=== PATIENT | female | born 1965 | race African-American/Black ===

== ENCOUNTER 2017-12-30 18:43 | Inpatient (IN) | payer MEDICARE, MEDICAID ==
[~2017-12-30] VITALS: Ht 165.1 cm; Wt 127.9 kg
[~2017-12-30 18:43] MED LIST: CYCL-36 PO; GLUC10TA3 PO; HYDR10SO PO; IBUP800T23 PO; JANU100T PO; LANSO15 PO; METF-324 PO; METO10TA PO; OSEL75 PO; ZOFR4TAB3 SL
[2017-12-30 18:54] VITALS: BP 135/62; PULSE 116; RESP 19; TEMP 103; O2SAT 95
[2017-12-30] MEDS ORDERED: AZTREONAM INJ 2,000 MG in SODIUM CHLORIDE 0.9% INJ 100 ML IV ONE (19:00)
[2017-12-30] MEDS ORDERED: SODIUM CHLOR 0.9% 1000 ML INJ 1,000 ML IV ONE ×2 (19:00)
[2017-12-30] MEDS ORDERED: VANCOMYCIN INJ 1,000 MG in SODIUM CHLOR 0.9% 250 ML INJ 250 ML IV ONE (19:00)
[2017-12-30] MEDS ORDERED: ACETAMINOPHEN 325 MG TAB PO ONE (19:00)
--- NOTE | 2017-12-30 19:04 | PD ---
HPI Chief Complaint: Altered Mental Status Time Seen by Provider: 18:54 Travel History International Travel<30 days: No Contact w/Intl Traveler<30days: No Traveled to known affect area: No History of Present Illness HPI Patient is a 52-year-old female history of diabetes presents emergency department for evaluation of generalized achiness not feeling well since about 1400 earlier today. She also states that her right arm feels significantly heavier than the left. Fairly somnolent on arrival she is moaning and ears uncomfortable. She denies any cough congestion vomiting diarrhea constipation but does endorse some mild nausea. Denies any vaginal bleeding or vaginal discharge. Denies a history of stroke or ACS in the past. PFSH Past Medical History Anemia: Yes Arthritis: No Heart Rhythm Problems: No Cancer: No Cardiac Catheterization: No Cardiovascular Problems: No High Cholesterol: No Congestive Heart Failure: No Diabetes: Yes Diminished Hearing: No Glaucoma: No Genitourinary: Yes (FIBROIDS) Hepatitis: No Hiatal Hernia: No Hypertension: No Immune Disorder: Yes (FIBROMYALGIA) Neurologic: Yes (fibromyalgia) Psychiatric: No Respiratory: No Myocardial Infarction: No Thyroid Disease: No Menopausal: Yes : 5 Para: 4 : 1 Tubal Ligation: Yes Past Surgical History Abdominal Surgery: Yes (LIZ, PARTIAL HYSTERECTOMY) Cardiac Surgery: No Cholecystectomy: Yes Coronary Artery Bypass Graft: No Ear Surgery: No Endocrine Surgery: No Eye Surgery: No Gynecologic Surgery: Yes (TUBAL LIGATION) Hysterectomy: Yes (PARTIAL) Neurologic Surgery: No Oral Surgery: No Thoracic Surgery: No Other Surgery: Yes Social History Alcohol Use: Yes (OCC) Tobacco Use: No Substance Use: No Allergies-Medications (Allergen,Severity, Reaction): Coded Allergies: cefepime (Unverified Allergy, Mild, 03/13/17) ceftaroline fosamil (Unverified Allergy, Mild, 03/13/17) Reported Meds & Prescriptions Reported Meds & Active Scripts Active Reported Reglan (Metoclopramide HCl) 10 Mg Tab 10 Mg PO DAILY Flexeril (Cyclobenzaprine HCl) 10 Mg Tab 10 Mg PO TID Januvia (Sitagliptin Phosphate) 100 Mg Tab 100 Mg PO DAILY Glipizide 10 Mg Tab 10 Mg PO BIDAC Take 30 minutes before a meal Metformin (Metformin HCl) 1,000 Mg Tab 1,000 Mg PO BIDPC Review of Systems Except as stated in HPI: all other systems reviewed are Neg Physical Exam Narrative GENERAL: Well-developed well-nourished, moaning, appears uncomfortable, somnolent. Morbidly obese. SKIN: Focused skin assessment warm/dry. No rash no wound seen on her person. HEAD: Atraumatic. Normocephalic. EYES: Pupils equal and round. No scleral icterus. No injection or drainage. ENT: No nasal bleeding or discharge. Mucous membranes pink and dry. TMs clear bilaterally. NECK: Trachea midline. No JVD. CARDIOVASCULAR: Regular rhythm with tachycardia, no MGR peer no murmur appreciated. RESPIRATORY: No accessory muscle use. Clear to auscultation. Breath sounds equal bilaterally. GASTROINTESTINAL: Abdomen soft, non-tender, nondistended. Hepatic and splenic margins not palpable. Well-healed surgical scars. MUSCULOSKELETAL: No obvious deformities. No clubbing. No cyanosis. No edema. NEUROLOGICAL: Awake and alert, GCS of 14(E3) follows commands in all 4 extremities, equal strength in bilateral upper and lower extremities but poor effort on the patient's part. Cranial nerves II through XII grossly intact and nonfocal. PSYCHIATRIC: Appropriate mood and affect; insight and judgment normal. Data Data Last Documented VS Vital Signs Date Time Temp Pulse Resp B/P (MAP) Pulse Ox O2 Delivery O2 Flow Rate FiO2 12/30/17 19:48 110 22 141/69 (93) 100 Room Air 12/30/17 18:54 103.0 Orders Orders Sepsis Workup Initiated (12/30/17 ) Complete Blood Count With Diff (12/30/17 18:54) Comprehensive Metabolic Panel (12/30/17 18:54) Beta Hcg (Quant/Titer) (12/30/17 18:54) Prothrombin Time / Inr (Pt) (12/30/17 18:54) Act Partial Throm Time (Ptt) (12/30/17 18:54) Lactic Acid Sepsis Protocol (12/30/17 18:54) Magnesium (Mg) (12/30/17 18:54) Phosphorus (Po4) (12/30/17 18:54) Lipase (12/30/17 18:54) Ckmb (Isoenzyme) Profile (12/30/17 18:54) Troponin I (12/30/17 18:54) Urinalysis - C+S If Indicated (12/30/17 18:54) Blood Culture (12/30/17 18:54) Chest, Single Ap (12/30/17 18:54) Blood Glucose (12/30/17 18:54) Ecg Monitoring (12/30/17 18:54) Iv Access Insert/Monitor (12/30/17 18:54) Oximetry (12/30/17 18:54) Oxygen Administration (12/30/17 18:54) Acetaminophen (Tylenol) (12/30/17 19:00) Sodium Chlor 0.9% 1000 Ml Inj (Ns 1000 M (12/30/17 19:00) Sodium Chlor 0.9% 1000 Ml Inj (Ns 1000 M (12/30/17 19:00) Vancomycin Inj (Vancomycin Inj) (12/30/17 19:00) Aztreonam Inj (Azactam Inj) (12/30/17 19:00) CKMB (12/30/17 19:00) CKMB% (12/30/17 19:00) Labs Laboratory Tests Test 12/30/17 18:59 12/30/17 19:00 Lactic Acid Level 1.3 mmol/L White Blood Count 10.6 TH/MM3 Red Blood Count 4.37 MIL/MM3 Hemoglobin 11.4 GM/DL Hematocrit 35.4 % Mean Corpuscular Volume 81.0 FL Mean Corpuscular Hemoglobin 26.0 PG Mean Corpuscular Hemoglobin Concent 32.1 % Red Cell Distribution Width 15.5 % Platelet Count 297 TH/MM3 Mean Platelet Volume 7.8 FL Neutrophils (%) (Auto) 80.1 % Lymphocytes (%) (Auto) 15.3 % Monocytes (%) (Auto) 4.5 % Eosinophils (%) (Auto) 0.1 % Basophils (%) (Auto) 0.0 % Neutrophils # (Auto) 8.5 TH/MM3 Lymphocytes # (Auto) 1.6 TH/MM3 Monocytes # (Auto) 0.5 TH/MM3 Eosinophils # (Auto) 0.0 TH/MM3 Basophils # (Auto) 0.0 TH/MM3 CBC Comment DIFF FINAL Differential Comment Prothrombin Time 10.7 SEC Prothromb Time International Ratio 1.1 RATIO Activated Partial Thromboplast Time 25.9 SEC Blood Urea Nitrogen 17 MG/DL Creatinine 1.00 MG/DL Random Glucose 117 MG/DL Total Protein 8.6 GM/DL Albumin 3.5 GM/DL Calcium Level 9.6 MG/DL Phosphorus Level 2.1 MG/DL Magnesium Level 1.3 MG/DL Alkaline Phosphatase 63 U/L Aspartate Amino Transf (AST/SGOT) 17 U/L Alanine Aminotransferase (ALT/SGPT) 29 U/L Total Bilirubin 0.5 MG/DL Sodium Level 137 MEQ/L Potassium Level 4.0 MEQ/L Chloride Level 102 MEQ/L Carbon Dioxide Level 24.6 MEQ/L Anion Gap 10 MEQ/L Estimat Glomerular Filtration Rate 71 ML/MIN Total Creatine Kinase 130 U/L Creatine Kinase MB LESS THAN 0.5 NG/ML Troponin I LESS THAN 0.02 NG/ML Lipase 152 U/L Human Chorionic Gonadotropin, Quant 2 MIU/ML MDM Medical Decision Making Medical Screen Exam Complete: Yes Emergency Medical Condition: Yes Differential Diagnosis Sepsis, pneumonia, influenza, UTI, dehydration, DKA, tachycardia, dehydration. Acute stroke highly unlikely, meningitis highly unlikely. Narrative Course Patient room the emergency department, large-bore access obtained, 2 L normal saline ordered, patient does meet SIRS criteria given her somnolence and level of fever as well as dehydration and diabetes high index suspicion utilize she was started on vancomycin and Azactam. No definitive source of infection has been identified and therefore she is only sirs at this time. Patient was discussed with Dr. Ferraro at 1900 shift change to continue workup and disposition as appropriate. Mario Herzog MD Dec 30, 2017 19:04
[2017-12-30] MEDS ORDERED: METF1000 PO (19:05)
[2017-12-30] MEDS ORDERED: CYCL10TA PO (19:05)
[2017-12-30] MEDS ORDERED: GLIP10TA6 PO (19:05)
[2017-12-30] MEDS ORDERED: REGL10TA5 PO (19:05)
[2017-12-30] MEDS ORDERED: SITA1TAB2 PO (19:05)
[2017-12-30 19:16] LABS: AUTOMATED NEUTROPHIL # 8.5 TH/MM3 (1.8-7.7); EOSINOPHIL % 0.1 % (0.0-4.0); HEMATOCRIT 35.4 % (35.0-46.0); HEMOGLOBIN 11.4 GM/DL (11.6-15.3); LYMPH % 15.3 % (9.0-44.0); LYMPHOCYTE # 1.6 TH/MM3 (1.0-4.8); MEAN CORPUSCULAR HGB CONC 32.1 % (32.0-36.0); MEAN PLATELET VOLUME 7.8 FL (7.0-11.0); MONO % 4.5 % (0.0-8.0); MONOCYTE # 0.5 TH/MM3 (0-0.9); NEUT % 80.1 % (16.0-70.0); PLATELET COUNT 297 TH/MM3 (150-450); RED BLOOD COUNT 4.37 MIL/MM3 (4.00-5.30); RED CELL DISTRIBUTION WIDTH 15.5 % (11.6-17.2); WHITE BLOOD COUNT 10.6 TH/MM3 (4.0-11.0)
[2017-12-30 19:26] LABS: INTERNATIONAL NORMALIZED RATIO 1.1 RATIO; PROTHROMBIN TIME - PATIENT 10.7 SEC (9.8-11.6)
--- NOTE | 2017-12-30 19:26 | PD ---
Physical Exam Narrative General: The patient is a well-developed well-nourished female in no acute distress. Head and Neck exam: Head is normocephalic atraumatic. Eyes: EOMI, pupils are equal round and reactive to light. Nose: Midline septum with pink mucous membranes Mouth: Dentition unremarkable. Moist mucus membranes. Posterior oropharynx is not erythematous. No tonsillar hypertrophy. Uvula midline. Airway patent. Neck: No palpable lymphadenopathy. No nuchal rigidity. No thyromegaly. Cardiovascular: Sinus tachycardia in the low 100 without murmurs, gallops, or rubs. No pulse deficit to the extremities on simultaneous auscultation and palpation of her radial artery. Lungs: Clear to auscultation bilaterally. No wheezes, rhonchi, or rales. Abdomen: Soft, without tenderness to palpation in all 4 quadrants of the abdomen. No guarding, rebound, or rigidity. Normal bowel sounds are audible. No tenderness on palpation of McBurney's point. Negative Dumont sign. Extremities: No clubbing, cyanosis, or edema. 2+ pulses in all 4 extremities. No calf tenderness on palpation. Back: No spinous process tenderness to palpation. No costovertebral angle tenderness to palpation. Neurologic Exam: Grossly nonfocal. The patient has reported generalized weakness. Skin Exam: No rash noted. Intact skin that is warm and dry. Data Data Last Documented VS Vital Signs Date Time Temp Pulse Resp B/P (MAP) Pulse Ox O2 Delivery O2 Flow Rate FiO2 12/30/17 22:12 101.9 103 18 122/63 (82) 100 Room Air Orders Orders Sepsis Workup Initiated (12/30/17 ) Complete Blood Count With Diff (12/30/17 18:54) Comprehensive Metabolic Panel (12/30/17 18:54) Beta Hcg (Quant/Titer) (12/30/17 18:54) Prothrombin Time / Inr (Pt) (12/30/17 18:54) Act Partial Throm Time (Ptt) (12/30/17 18:54) Lactic Acid Sepsis Protocol (12/30/17 18:54) Magnesium (Mg) (12/30/17 18:54) Phosphorus (Po4) (12/30/17 18:54) Lipase (12/30/17 18:54) Ckmb (Isoenzyme) Profile (12/30/17 18:54) Troponin I (12/30/17 18:54) Urinalysis - C+S If Indicated (12/30/17 18:54) Blood Culture (12/30/17 18:54) Chest, Single Ap (12/30/17 18:54) Blood Glucose (12/30/17 18:54) Ecg Monitoring (12/30/17 18:54) Iv Access Insert/Monitor (12/30/17 18:54) Oximetry (12/30/17 18:54) Oxygen Administration (12/30/17 18:54) Acetaminophen (Tylenol) (12/30/17 19:00) Sodium Chlor 0.9% 1000 Ml Inj (Ns 1000 M (12/30/17 19:00) Sodium Chlor 0.9% 1000 Ml Inj (Ns 1000 M (12/30/17 19:00) Vancomycin Inj (Vancomycin Inj) (12/30/17 19:00) Aztreonam Inj (Azactam Inj) (12/30/17 19:00) CKMB (12/30/17 19:00) CKMB% (12/30/17 19:00) Diphenhydramine Inj (Benadryl Inj) (12/30/17 21:00) Ibuprofen (Motrin) (12/30/17 21:00) Urine Culture (12/30/17 21:25) Admit Order (Ed Use Only) (12/30/17 22:40) Labs Laboratory Tests Test 12/30/17 18:59 12/30/17 19:00 12/30/17 21:25 Lactic Acid Level 1.3 mmol/L White Blood Count 10.6 TH/MM3 Red Blood Count 4.37 MIL/MM3 Hemoglobin 11.4 GM/DL Hematocrit 35.4 % Mean Corpuscular Volume 81.0 FL Mean Corpuscular Hemoglobin 26.0 PG Mean Corpuscular Hemoglobin Concent 32.1 % Red Cell Distribution Width 15.5 % Platelet Count 297 TH/MM3 Mean Platelet Volume 7.8 FL Neutrophils (%) (Auto) 80.1 % Lymphocytes (%) (Auto) 15.3 % Monocytes (%) (Auto) 4.5 % Eosinophils (%) (Auto) 0.1 % Basophils (%) (Auto) 0.0 % Neutrophils # (Auto) 8.5 TH/MM3 Lymphocytes # (Auto) 1.6 TH/MM3 Monocytes # (Auto) 0.5 TH/MM3 Eosinophils # (Auto) 0.0 TH/MM3 Basophils # (Auto) 0.0 TH/MM3 CBC Comment DIFF FINAL Differential Comment Prothrombin Time 10.7 SEC Prothromb Time International Ratio 1.1 RATIO Activated Partial Thromboplast Time 25.9 SEC Blood Urea Nitrogen 17 MG/DL Creatinine 1.00 MG/DL Random Glucose 117 MG/DL Total Protein 8.6 GM/DL Albumin 3.5 GM/DL Calcium Level 9.6 MG/DL Phosphorus Level 2.1 MG/DL Magnesium Level 1.3 MG/DL Alkaline Phosphatase 63 U/L Aspartate Amino Transf (AST/SGOT) 17 U/L Alanine Aminotransferase (ALT/SGPT) 29 U/L Total Bilirubin 0.5 MG/DL Sodium Level 137 MEQ/L Potassium Level 4.0 MEQ/L Chloride Level 102 MEQ/L Carbon Dioxide Level 24.6 MEQ/L Anion Gap 10 MEQ/L Estimat Glomerular Filtration Rate 71 ML/MIN Total Creatine Kinase 130 U/L Creatine Kinase MB LESS THAN 0.5 NG/ML Troponin I LESS THAN 0.02 NG/ML Lipase 152 U/L Human Chorionic Gonadotropin, Quant 2 MIU/ML Urine Color YELLOW Urine Turbidity HAZY Urine pH 5.5 Urine Specific [place] 1.018 Urine Protein 30 mg/dL Urine Glucose (UA) NEG mg/dL Urine Ketones NEG mg/dL Urine Occult Blood MOD Urine Nitrite POS Urine Bilirubin NEG Urine Urobilinogen LESS THAN 2.0 MG/DL Urine Leukocyte Esterase LARGE Urine RBC 74 /hpf Urine WBC 128 /hpf Urine Squamous Epithelial Cells 5 /hpf Urine Mucus FEW /lpf Microscopic Urinalysis Comment CULTURE INDICATED MDM Medical Record Reviewed: Yes Supervised Visit with SHAINA: No Interpretation(s) Last Impressions Chest X-Ray 12/30/17 7266 Signed Impressions: CONCLUSION: 1. Cardiomegaly. 2. No focal infiltrate or pulmonary vascular congestion. Narrative Course During the course of the patient's emergency department visit, the patient's history, examination, and differential diagnosis were reviewed with the patient. The patient was placed on a alarm security or surveillance monitor with oximetry and frequent blood pressure monitoring. The patient had IV access obtained and blood work sent for analysis. The patient's case was checked out to me by Dr. Herzog. Please see his complete history and physical. The patient's case was checked out to me at the conclusion of his shift. The patient reports to me a history over the last 2 weeks of a strong odor to her urine. She was concerned that she may have a urinary tract infection. She reports that she was waiting to see her primary care physician for her usual appointment this week. She is followed by Dr. Zuniga for her primary care. The patient reports that she has had low back pain is been worse than usual. She does have a history of chronic low back pain and is in pain management for it. She denies having any flank pain on one side of the other. She reports that around 230 today she began to experience generalized weakness and fever. The patient arrives to this facility with a temperature of 103. The patient was initially provided normal saline 2 L IV fluid bolus, Tylenol 650 p.o. 1 for fever, vancomycin and Azactam for broad-spectrum antibiotic coverage for suspected sepsis of undetermined origin. The patient's laboratory studies were reviewed and remarkable for a white count of 10.6, hemoglobin 11.4, platelets 297 with 80.1 neutrophils, CMP is remarkable for glucose of 117, lactic acid is 1.3, phosphorus 2.1, magnesium 1.3 , CPK 130, troponin I is less than 0.02, quantitative beta-hCG is 2, lipase 152 , PT PTT within normal limits. Urinalysis shows moderate occult blood positive nitrite large leukocyte esterase 74 RBCs, 128 WBCs, culture indicated Radiology studies were reviewed and remarkable for a chest x-ray that shows cardiomegaly, no focal infiltrate or pulmonary vascular congestion. The patient's results were discussed with the patient, including the plan of care. I explained that further testing and/ or monitoring is indicated based on the patient's history, examination, and/ or laboratory findings. Therefore, I recommended admission for additional evaluation. The patient expressed understanding and was agreeable with this plan. The patient was admitted to the hospital in guarded condition and sent to a bed under the care of the [facility] Hospitalist service. Sepsis Criteria SIRS Criteria (2 or more): Temp > 100.9 or < 96.8, Heart rate over 90, RR > 20 or PaCO2 < 32 Sepsis Criteria (SIRS+source): Infect source susp/known Criteria Outcome: Meets SIRS criteria, Meets sepsis criteria Physician Communication Physician Communication The patient's case including history, pertinent physical examination findings, and laboratory studies were discussed with Dr. Adrian. It was agreed that the patient would be admitted to the [facility] Hospitalist service. Diagnosis Primary Impression: Pyelonephritis Additional Impressions: SIRS (systemic inflammatory response syndrome) Weakness Admitting Information Admitting Physician Requests: Admit Erin Ferraro MD Dec 30, 2017 19:26
[2017-12-30 19:31] LABS: ALBUMIN 3.5 GM/DL (3.4-5.0); AST (GOT) 17 U/L (15-37); BICARBONATE 24.6 MEQ/L (21.0-32.0); BLOOD UREA NITROGEN 17 MG/DL (7-18); CALCIUM 9.6 MG/DL (8.5-10.1); CHLORIDE 102 MEQ/L (98-107); GLOMERULAR FILTRATION RATE 71 ML/MIN (>89); GLUCOSE,RANDOM 117 MG/DL (74-106); MAGNESIUM 1.3 MG/DL (1.5-2.5); SODIUM (NA) 137 MEQ/L (136-145)
[2017-12-30 19:36] LABS: ALKALINE PHOSPHATASE 63 U/L (45-117); ALT (GPT) 29 U/L (10-53); PHOSPHORUS 2.1 MG/DL (2.5-4.9); TOTAL BILIRUBIN ADULT 0.5 MG/DL (0.2-1.0); TOTAL PROTEIN 8.6 GM/DL (6.4-8.2); TROPONIN I LESS THAN 0.02 NG/ML (0.02-0.05)
--- NOTE | 2017-12-30 19:41 | RADRPT ---
EXAM DATE: 12/30/2017 7:23 PM EDT AGE/SEX: 52 years / Female INDICATIONS: Fever. CLINICAL DATA: This is the patient's initial encounter. Patient reports that signs and symptoms have been present for 1 day and indicates a pain score of 0/10. MEDICAL/SURGICAL HISTORY: None. None. COMPARISON: [facility] [place], CHEST SINGLE AP, 07/09/2015. . FINDINGS: The heart is enlarged. The pulmonary vascular pattern is normal. The lungs are clear. Degenerative ch anges are noted throughout the thoracic spine. CONCLUSION: 1. Cardiomegaly. 2. No focal infiltrate or pulmonary vascular congestion. Electronically signed by: Mario Frias MD 12/30/2017 7:40 PM EDT
[2017-12-30 19:48] VITALS: BP 141/69; PULSE 110; RESP 22; O2SAT 100
[2017-12-30] MEDS ORDERED: IBUPROFEN 400 MG TAB PO ONE (21:00)
[2017-12-30] MEDS ORDERED: diphenhydrAMINE HCL 50 MG/ML VIAL IV PUSH ONE (21:00)
[2017-12-30 22:05] LABS: BILIRUBIN, URINE NEG (NEG); BLOOD, URINE MOD (NEG); GLUCOSE,URINE NEG (NEG); KETONE, URINE NEG (NEG); MUCUS URINE FEW /lpf (OCC); NITRITE,URINE POS (NEG); PH, URINE 5.5 (5.0-8.5); SQUAMOUS EPITHELIAL CELL URINE 5 /hpf (0-5); URINE COLOR YELLOW (YELLW/STRAW); URINE LEUKOCYTE ESTERASE LARGE (NEG)
[2017-12-30 22:12] VITALS: BP 122/63; PULSE 103; RESP 18; TEMP 101.9; O2SAT 100
--- NOTE | 2017-12-30 22:58 | HHI.HP ---
HPI Service [facility] Primary Care Physician Jordin Zuniga DO Admission Diagnosis Pyelonephritis, SIRS Diagnoses: (1) Sepsis Diagnosis: Principal (2) UTI (urinary tract infection) Diagnosis: Principal (3) DM (diabetes mellitus) Diagnosis: Principal Travel History International Travel<30 Days: No Contact w/Intl Traveler <30 Da: No Traveled to Known Affected Are: No History of Present Illness This is a 52-year-old female with a PMH of HTN, Fibromyalgia, Anemia and DM who presented to ER with complaints of generalized malaise and "not feeling well". Noted by family to be somewhat confused/disoriented. Denies fever, chills, cough or chest pain. No nausea, vomiting or diarrhea. On arrival, BP 135/62, HR 116, O2 sat 95% on RA, Temp 103.0. WBC normal. Chemistry unremarkable except for GFR 71. Troponin negative. INR 1.1. CXR with no infiltrate or congestion. UA with UTI. S/p Vanc/Azactam in ER. Review of Systems Except as stated in HPI: all other systems reviewed are Neg ROS: 14 point review of systems otherwise negative. Past Family Social History Past Medical History PMH: HTN, Fibromyalgia, Anemia and DM Past Surgical History PAST SURGICAL HISTORY: Cholecystectomy, Partial Hysterectomy, Tubal Ligation Allergies: Coded Allergies: cefepime (Unverified Allergy, Mild, 12/30/17) ceftaroline fosamil (Unverified Allergy, Mild, 12/30/17) Family History PAST FAMILY HISTORY: Reviewed. No h/o DM or CAD Social History PAST SOCIAL HISTORY: Occasional alcohol. Negative for tobacco or drugs. Physical Exam Vital Signs Vital Signs Date Time Temp Pulse Resp B/P (MAP) Pulse Ox O2 Delivery O2 Flow Rate FiO2 12/30/17 22:12 101.9 103 18 122/63 (82) 100 Room Air 12/30/17 19:48 110 22 141/69 (93) 100 Room Air 12/30/17 18:54 103.0 116 19 135/62 (86) 95 Physical Exam PE: GENERAL: Very pleasant middle-aged white female in no acute distress, however appears to feel unwell. HEENT: PERRLA, EOMI. No scleral icterus or conjunctival pallor. No lid lag or facial droop. CARDIOVASCULAR: Regular rate and rhythm. No obvious murmurs to auscultation. No chest tenderness to palpation. RESPIRATORY: No obvious rhonchi or wheezing. Clear to auscultation. Breath sounds equal bilaterally. GASTROINTESTINAL: Abdomen soft, non-tender, nondistended. BS normal. MUSCULOSKELETAL: Extremities without clubbing, cyanosis, or edema. No obvious deformities. NEUROLOGICAL: Awake, alert and oriented x4, answering questions appropriately. No focal neurologic deficits. Moving both upper and lower extremities spontaneously. Laboratory Laboratory Tests Test 12/30/17 18:59 12/30/17 19:00 12/30/17 21:25 Lactic Acid Level 1.3 White Blood Count 10.6 Red Blood Count 4.37 Hemoglobin 11.4 Hematocrit 35.4 Mean Corpuscular Volume 81.0 Mean Corpuscular Hemoglobin 26.0 Mean Corpuscular Hemoglobin Concent 32.1 Red Cell Distribution Width 15.5 Platelet Count 297 Mean Platelet Volume 7.8 Neutrophils (%) (Auto) 80.1 Lymphocytes (%) (Auto) 15.3 Monocytes (%) (Auto) 4.5 Eosinophils (%) (Auto) 0.1 Basophils (%) (Auto) 0.0 Neutrophils # (Auto) 8.5 Lymphocytes # (Auto) 1.6 Monocytes # (Auto) 0.5 Eosinophils # (Auto) 0.0 Basophils # (Auto) 0.0 CBC Comment DIFF FINAL Differential Comment Prothrombin Time 10.7 Prothromb Time International Ratio 1.1 Activated Partial Thromboplast Time 25.9 Blood Urea Nitrogen 17 Creatinine 1.00 Random Glucose 117 Total Protein 8.6 Albumin 3.5 Calcium Level 9.6 Phosphorus Level 2.1 Magnesium Level 1.3 Alkaline Phosphatase 63 Aspartate Amino Transf (AST/SGOT) 17 Alanine Aminotransferase (ALT/SGPT) 29 Total Bilirubin 0.5 Sodium Level 137 Potassium Level 4.0 Chloride Level 102 Carbon Dioxide Level 24.6 Anion Gap 10 Estimat Glomerular Filtration Rate 71 Total Creatine Kinase 130 Creatine Kinase MB LESS THAN 0.5 Troponin I LESS THAN 0.02 Lipase 152 Human Chorionic Gonadotropin, Quant 2 Urine Color YELLOW Urine Turbidity HAZY Urine pH 5.5 Urine Specific [place] 1.018 Urine Protein 30 Urine Glucose (UA) NEG Urine Ketones NEG Urine Occult Blood MOD Urine Nitrite POS Urine Bilirubin NEG Urine Urobilinogen LESS THAN 2.0 Urine Leukocyte Esterase LARGE Urine RBC 74 Urine WBC 128 Urine Squamous Epithelial Cells 5 Urine Mucus FEW Microscopic Urinalysis Comment CULTURE INDICATED Date/Time Source Procedure Growth Status 12/30/17 19:02 Blood Peripheral Aerobic Blood Culture Pending Received 12/30/17 19:02 Blood Peripheral Anaerobic Blood Culture Pending Received 12/30/17 21:25 Urine Catheterized Urine Urine Culture Pending Received Result Diagram: 12/30/17189912/30/171899 Caprini VTE Risk Assessment Caprini VTE Risk Assessment: No/Low Risk (score <= 1) Caprini Risk Assessment Model Point Value = 1 Point Value = 2 Point Value = 3 Point Value = 5 Age 41-60 Minor surgery BMI > 25 kg/m2 Swollen legs Varicose veins or History of unexplained or recurrent spontaneous Oral contraceptives or hormone replacement Sepsis (< 1 month) Serious lung disease, including pneumonia (< 1 month) Abnormal pulmonary function Acute myocardial infarction Congestive heart failure (< 1 month) History of inflammatory bowel disease Medical patient at bed rest Age 61-74 Arthroscopic surgery Major open surgery (> 45 min) Laparoscopic surgery (> 45 min) Malignancy Confined to bed (> 72 hours) Immobilizing plaster cast Central venous access Age >= 75 History of VTE Family history of VTE Factor V Leiden Prothrombin [id number] Lupus anticoagulant Anticardiolipin antibodies Elevated serum homocysteine Heparin-induced thrombocytopenia Other congenital or acquired thrombophilia Stroke (< 1 month) Elective arthroplasty Hip, pelvis, or leg fracture Acute spinal cord injury (< 1 month) Prophylaxis Regimen Total Risk Factor Score Risk Level Prophylaxis Regimen 0-1 Low Early ambulation 2 Moderate Order ONE of the following: *Sequential Compression Device (SCD) *Heparin 5000 units SQ BID 3-4 Higher Order ONE of the following medications: *Heparin 5000 units SQ TID *Enoxaparin/Lovenox 40 mg SQ daily (WT < 150 kg, CrCl > 30 mL/min) *Enoxaparin/Lovenox 30 mg SQ daily (WT < 150 kg, CrCl > 10-29 mL/min) *Enoxaparin/Lovenox 30 mg SQ BID (WT < 150 kg, CrCl > 30 mL/min) AND/OR *Sequential Compression Device (SCD) 5 or more Highest Order ONE of the following medications: *Heparin 5000 units SQ TID (Preferred with Epidurals) *Enoxaparin/Lovenox 40 mg SQ daily (WT < 150 kg, CrCl > 30 mL/min) *Enoxaparin/Lovenox 30 mg SQ daily (WT < 150 kg, CrCl > 10-29 mL/min) *Enoxaparin/Lovenox 30 mg SQ BID (WT < 150 kg, CrCl > 30 mL/min) AND *Sequential Compression Device (SCD) Assessment and Plan Problem List: (1) Sepsis ICD Code: A41.9 - Sepsis, unspecified organism (2) UTI (urinary tract infection) ICD Code: N39.0 - Urinary tract infection, site not specified (3) DM (diabetes mellitus) ICD Code: E11.9 - Type 2 diabetes mellitus without complications Assessment and Plan A/P: 1. Sepsis: Temp 103.0, HR 116, Source-UTI. S/p Vanc/Azactam, will follow up cultures, continue IV Abx, Telemetry. 2. UTI: U/a w/ significant UTI, continue IV Abx, IVF, follow up cultures. 3. DM: Sliding scale w/ Accu-Cheks. Hold Metformin for now. 4. DVT Prophylaxis: SCD/Teds 5. Social work for d/c planning as needed. 6. Case discussed w/ ER physician at length, labs/records/imaging reviewed by me. Physician Certification 2 Midnight Certification Type: Admission for Inpatient Services Order for Inpatient Services The services are ordered in accordance with Medicare regulations or non- Medicare payer requirements, as applicable. In the case of services not specified as inpatient-only, they are appropriately provided as inpatient services in accordance with the 2-midnight benchmark. Estimated LOS (days): 2 days is the estimated time the patient will need to remain in the hospital, assuming treatment plan goals are met and no additional complications. Post-Hospital Plan: Not yet determined Bridgette Adrian MD Dec 30, 2017 22:58
[2017-12-30] MEDS ORDERED: GLUCAGON 1 MG/ML VIAL OTHER PRN (23:00)
[2017-12-30] MEDS ORDERED: ACETAMINOPHEN/HYDROcodone 325 MG/5 MG TAB PO PRN (23:00)
[2017-12-30] MEDS ORDERED: DEXTROSE 50% IN WATER 50 ML VIAL(D50) IV PUSH PRN (23:00)
[2017-12-30] MEDS ORDERED: MAGNESIUM HYDROXIDE SUSP 30 ML CUP PO PRN (23:00)
[2017-12-30] MEDS ORDERED: SENNOSIDES 8.6 MG TAB PO PRN (23:00)
[2017-12-30] MEDS ORDERED: LACTULOSE SYRUP 20 GM/30 ML CUP PO PRN (23:00)
[2017-12-30] MEDS ORDERED: SODIUM CHLORIDE 0.9% FLUSH 10 ML FLUSH IV FLUSH PRN (23:00)
[2017-12-30] MEDS ORDERED: BISACODYL 10 MG SUPP RECTAL PRN (23:00)
[2017-12-30 23:14] VITALS: TEMP 100
[2017-12-30] MEDS: SODIUM CHLOR 0.9% 1000 ML INJ 1,000 ML IV SCH (23:56)
[2017-12-31] VITALS (13 sets, daily range): BP systolic 114–175; BP diastolic 61–81; PULSE 93–116; RESP 16–24; TEMP 97.8–102.6; O2SAT 95–97
[2017-12-31] MEDS: ACETAMINOPHEN 325 MG TAB PO PRN ×2 (07:36→20:04)
[2017-12-31] MEDS: ACETAMINOPHEN/HYDROcodone 325 MG/10 MG TAB PO PRN ×3 (07:37→20:04)
[2017-12-31] MEDS: INSULIN ASPART SUPPLEMENTAL SCALE SQ SCH ×4 (07:37→22:29)
[2017-12-31] MEDS: SODIUM CHLOR 0.9% 1000 ML INJ 1,000 ML IV SCH ×2 (08:54→17:29)
[2017-12-31] MEDS: DOCUSATE SODIUM 50 MG/SENNA 8.6 MG TAB PO SCH ×2 (09:37→20:03)
[2017-12-31] MEDS: SODIUM CHLORIDE 0.9% FLUSH 10 ML FLUSH IV FLUSH SCH ×2 (09:37→22:29)
[2017-12-31] MEDS ORDERED: RESP: ALBUTEROL 2.5 MG/IPRATROPIUM 0.5 MG NEB (PRN) NEB (09:45)
[2017-12-31] MEDS ORDERED: ENALAPRILAT 2.5 MG/2 ML VIAL IV PUSH PRN (09:45)
--- NOTE | 2017-12-31 09:49 | HHI.PR ---
Subjective Remarks Follow-up sepsis/UTI December 31, 2017-patient seen and examined, still spiking fever with T-max 102.3 at 7 AM, also complains of flank pain. Objective Vitals Vital Signs Date Time Temp Pulse Resp B/P (MAP) Pulse Ox O2 Delivery O2 Flow Rate FiO2 12/31/17 09:36 99.5 12/31/17 07:20 102.3 109 20 175/81 (112) 95 12/31/17 05:21 97.8 113 16 133/77 (95) 12/31/17 00:38 99.6 116 16 132/61 (84) 12/30/17 23:26 12/30/17 23:14 100.0 12/30/17 22:12 101.9 103 18 122/63 (82) 100 Room Air 12/30/17 19:48 110 22 141/69 (93) 100 Room Air 12/30/17 18:54 103.0 116 19 135/62 (86) 95 I/O 12/30/17 12/30/17 12/30/17 12/31/17 12/31/17 12/31/17 07:00 15:00 23:00 07:00 15:00 23:00 Intake Total 2250 ml Balance 2250 ml Intake IV Total 2250 ml Result Diagram: 12/30/17189912/30/17 190 Imaging Last Impressions Chest X-Ray 12/30/17 1854 Signed Impressions: CONCLUSION: 1. Cardiomegaly. 2. No focal infiltrate or pulmonary vascular congestion. Objective Remarks GENERAL: NAD SKIN: Warm and dry. HEAD: Normocephalic. EYES: No scleral icterus. No injection or drainage. NECK: Supple, trachea midline. No JVD or lymphadenopathy. CARDIOVASCULAR: Regular rate and rhythm without murmurs, gallops, or rubs. RESPIRATORY: Breath sounds equal bilaterally. No accessory muscle use. GASTROINTESTINAL: Abdomen soft, non-tender, nondistended. MUSCULOSKELETAL: No cyanosis, or edema. BACK: Nontender without obvious deformity. + CVA tenderness. A/P Problem List: (1) Sepsis ICD Code: A41.9 - Sepsis, unspecified organism (2) UTI (urinary tract infection) ICD Code: N39.0 - Urinary tract infection, site not specified (3) DM (diabetes mellitus) ICD Code: E11.9 - Type 2 diabetes mellitus without complications Assessment and Plan 52-year-old female with 1. Sepsis: Temp 103.0, HR 116, Source-UTI. S/p Vanc/Azactam, currently on Levaquin pending culture report will follow up cultures 2. UTI: U/a w/ significant UTI, continue IV Abx including Levaquin, IVF, follow up cultures. 3. DM: Sliding scale w/ Accu-Cheks. Continue to hold Metformin and other oral hypoglycemic agents. 4. DVT Prophylaxis: SCD/Teds Transfer patient to Cruzito Barger MD Dec 31, 2017 09:49
[2017-12-31 10:07] LABS: AUTOMATED NEUTROPHIL # 9.4 TH/MM3 (1.8-7.7); BASOPHIL % 0.2 % (0.0-2.0); HEMATOCRIT 32.3 % (35.0-46.0); HEMOGLOBIN 10.4 GM/DL (11.6-15.3); LYMPHOCYTE # 1.5 TH/MM3 (1.0-4.8); MEAN CELL VOLUME 80.6 FL (80.0-100.0); MEAN CORPUSCULAR HGB CONC 32.2 % (32.0-36.0); MEAN PLATELET VOLUME 7.9 FL (7.0-11.0); MONO % 5.5 % (0.0-8.0); MONOCYTE # 0.6 TH/MM3 (0-0.9); NEUT % 81.3 % (16.0-70.0); PLATELET COUNT 256 TH/MM3 (150-450); RED BLOOD COUNT 4.01 MIL/MM3 (4.00-5.30); RED CELL DISTRIBUTION WIDTH 15.5 % (11.6-17.2); WHITE BLOOD COUNT 11.6 TH/MM3 (4.0-11.0)
[2017-12-31 10:27] LABS: ALBUMIN 2.8 GM/DL (3.4-5.0); ALKALINE PHOSPHATASE 58 U/L (45-117); ALT (GPT) 23 U/L (10-53); AST (GOT) 16 U/L (15-37); BICARBONATE 22.5 MEQ/L (21.0-32.0); BLOOD UREA NITROGEN 8 MG/DL (7-18); CALCIUM 8.6 MG/DL (8.5-10.1); CHLORIDE 104 MEQ/L (98-107); GLOMERULAR FILTRATION RATE 107 ML/MIN (>89); GLUCOSE,RANDOM 132 MG/DL (74-106); SODIUM (NA) 137 MEQ/L (136-145); TOTAL BILIRUBIN ADULT 0.7 MG/DL (0.2-1.0); TOTAL PROTEIN 7.3 GM/DL (6.4-8.2)
[2017-12-31] MEDS: METOCLOPRAMIDE HCL 10 MG/2 ML VIAL IV PUSH PRN (15:25)
[2017-12-31] MEDS ORDERED: LEVOFLOXACIN 750 MG PREMIX INJ 150 ML IV SCH (21:00)
[2018-01-01 03:37] VITALS: PULSE 107
[2018-01-01 04:45] VITALS: BP 140/74; PULSE 100; RESP 18; TEMP 101.3; O2SAT 100
[2018-01-01] MEDS: ACETAMINOPHEN 325 MG TAB PO PRN (04:51)
[2018-01-01] MEDS: METOCLOPRAMIDE HCL 10 MG/2 ML VIAL IV PUSH PRN (04:53)
[2018-01-01 05:29] LABS: BASOPHIL % 0.1 % (0.0-2.0); EOSINOPHIL % 0.1 % (0.0-4.0); HEMATOCRIT 31.3 % (35.0-46.0); HEMOGLOBIN 10.1 GM/DL (11.6-15.3); LYMPH % 15.3 % (9.0-44.0); LYMPHOCYTE # 1.4 TH/MM3 (1.0-4.8); MEAN CELL VOLUME 80.2 FL (80.0-100.0); MEAN CORPUSCULAR HEMOGLOBIN 25.9 PG (27.0-34.0); MEAN CORPUSCULAR HGB CONC 32.3 % (32.0-36.0); MEAN PLATELET VOLUME 7.9 FL (7.0-11.0); MONO % 7.4 % (0.0-8.0); MONOCYTE # 0.7 TH/MM3 (0-0.9); NEUT % 77.1 % (16.0-70.0); PLATELET COUNT 263 TH/MM3 (150-450); RED BLOOD COUNT 3.91 MIL/MM3 (4.00-5.30); RED CELL DISTRIBUTION WIDTH 15.1 % (11.6-17.2)
[2018-01-01 05:55] LABS: ALBUMIN 2.8 GM/DL (3.4-5.0); AST (GOT) 19 U/L (15-37); BICARBONATE 23.8 MEQ/L (21.0-32.0); BLOOD UREA NITROGEN 7 MG/DL (7-18); CALCIUM 9.1 MG/DL (8.5-10.1); CHLORIDE 99 MEQ/L (98-107); GLOMERULAR FILTRATION RATE 107 ML/MIN (>89); GLUCOSE,RANDOM 120 MG/DL (74-106); SODIUM (NA) 136 MEQ/L (136-145)
[2018-01-01 06:00] LABS: ALKALINE PHOSPHATASE 66 U/L (45-117); ALT (GPT) 29 U/L (10-53); TOTAL BILIRUBIN ADULT 0.6 MG/DL (0.2-1.0); TOTAL PROTEIN 7.7 GM/DL (6.4-8.2)
[2018-01-01 07:55] VITALS: BP 123/63; PULSE 101; RESP 18; TEMP 98.7; O2SAT 98
[2018-01-01] MEDS: INSULIN ASPART SUPPLEMENTAL SCALE SQ SCH (08:00)
[2018-01-01] MEDS: SODIUM CHLOR 0.9% 1000 ML INJ 1,000 ML IV SCH (08:42)
[2018-01-01] MEDS: DOCUSATE SODIUM 50 MG/SENNA 8.6 MG TAB PO SCH (08:42)
[2018-01-01] MEDS: SODIUM CHLORIDE 0.9% FLUSH 10 ML FLUSH IV FLUSH SCH (08:42)
[2018-01-01] MEDS: ACETAMINOPHEN/HYDROcodone 325 MG/10 MG TAB PO PRN (08:44)
[2018-01-01] MEDS ORDERED: LACTCHW3 CHEW (11:03)
[2018-01-01] MEDS ORDERED: CIPR-9 PO (11:03)
--- NOTE | 2018-01-01 11:05 | HHI.PR ---
Subjective Remarks Follow-up sepsis/UTI December 31, 2017-patient seen and examined, still spiking fever with T-max 102.3 at 7 AM, also complains of flank pain. January 02, 2028-patient seen and examined, reported improvement of symptoms of chest pain or shortness of breath. Currently afebrile. No acute event overnight. Tolerated p.o. without any competition nausea and vomiting. Looking for discharge home. Objective Vitals Vital Signs Date Time Temp Pulse Resp B/P (MAP) Pulse Ox O2 Delivery O2 Flow Rate FiO2 01/01/18 07:55 98.7 101 18 123/63 (83) 98 01/01/18 04:45 101.3 100 18 140/74 (96) 100 01/01/18 04:45 Room Air 01/01/18 03:37 107 12/31/17 23:45 93 12/31/17 23:11 99.2 97 18 135/77 (96) 97 12/31/17 21:37 98.9 107 18 145/72 (96) 95 12/31/17 19:55 102.6 115 16 138/70 (92) 96 12/31/17 16:49 115 12/31/17 15:47 99.9 111 24 139/62 (87) 95 12/31/17 13:17 102 12/31/17 11:14 99.1 94 16 114/67 (83) 95 I/O 12/31/17 12/31/17 12/31/17 01/01/18 01/01/18 01/01/18 07:00 15:00 23:00 07:00 15:00 23:00 Intake Total 1000 ml Balance 1000 ml Intake IV Total 1000 ml # Voids 2 3 Result Diagram: 01/01/18 0410 01/01/18 041 Imaging Last Impressions Chest X-Ray 12/30/17 1938 Signed Impressions: CONCLUSION: 1. Cardiomegaly. 2. No focal infiltrate or pulmonary vascular congestion. Objective Remarks GENERAL: NAD SKIN: Warm and dry. HEAD: Normocephalic. EYES: No scleral icterus. No injection or drainage. NECK: Supple, trachea midline. No JVD or lymphadenopathy. CARDIOVASCULAR: Regular rate and rhythm without murmurs, gallops, or rubs. RESPIRATORY: Breath sounds equal bilaterally. No accessory muscle use. GASTROINTESTINAL: Abdomen soft, non-tender, nondistended. MUSCULOSKELETAL: No cyanosis, or edema. BACK: Nontender without obvious deformity. + CVA tenderness. Procedures None A/P Problem List: (1) Sepsis ICD Code: A41.9 - Sepsis, unspecified organism Status: Resolved (2) UTI (urinary tract infection) ICD Code: N39.0 - Urinary tract infection, site not specified (3) DM (diabetes mellitus) ICD Code: E11.9 - Type 2 diabetes mellitus without complications Assessment and Plan 52-year-old female with 1. Sepsis: Resolved, Source-UTI. S/p Vanc/Azactam, currently on Levaquin, urine culture positive for E. coli pansensitive therefore will discharge on p.o. Cipro 2 weeks 2. UTI: U/a w/ significant UTI, continue IV Abx including Levaquin, IVF. Urine culture positive for E. coli and pansensitive 3. DM: Sliding scale w/ Accu-Cheks. Resume metformin and other oral hypoglycemic agents. 4. DVT Prophylaxis: SCD/Teds Problem Qualifiers (1) Sepsis: Qualified Codes: A41.51 - Sepsis due to Escherichia coli [e. coli] Cruzito Billings MD Jan 01, 2018 11:05
--- NOTE | 2018-01-01 11:07 | HHI.DS ---
Discharge Summary Admission Date Dec 30, 2017 at 22:41 Discharge Date: Jan 01, 2018 Admitting Diagnosis Pyelonephritis, SIRS (1) Sepsis ICD Code: A41.9 - Sepsis, unspecified organism Status: Resolved (2) UTI (urinary tract infection) ICD Code: N39.0 - Urinary tract infection, site not specified (3) DM (diabetes mellitus) ICD Code: E11.9 - Type 2 diabetes mellitus without complications Procedures None Brief History - From Admission This is a 52-year-old female with a PMH of HTN, Fibromyalgia, Anemia and DM who presented to ER with complaints of generalized malaise and "not feeling well". Noted by family to be somewhat confused/disoriented. Denies fever, chills, cough or chest pain. No nausea, vomiting or diarrhea. On arrival, BP 135/62, HR 116, O2 sat 95% on RA, Temp 103.0. WBC normal. Chemistry unremarkable except for GFR 71. Troponin negative. INR 1.1. CXR with no infiltrate or congestion. UA with UTI. S/p Vanc/Azactam in ER. CBC/BMP: 01/01/18 0410 01/01/18 0410 Significant Findings Laboratory Tests Test 12/30/17 18:59 12/30/17 19:00 12/30/17 21:25 12/31/17 09:30 Hemoglobin 11.4 GM/DL (11.6-15.3) 10.4 GM/DL (11.6-15.3) Mean Corpuscular Hemoglobin 26.0 PG (27.0-34.0) 26.0 PG (27.0-34.0) Neutrophils (%) (Auto) 80.1 % (16.0-70.0) 81.3 % (16.0-70.0) Neutrophils # (Auto) 8.5 TH/MM3 (1.8-7.7) 9.4 TH/MM3 (1.8-7.7) Random Glucose 117 MG/DL (74-106) 132 MG/DL (74-106) Total Protein 8.6 GM/DL (6.4-8.2) Phosphorus Level 2.1 MG/DL (2.5-4.9) Magnesium Level 1.3 MG/DL (1.5-2.5) Estimat Glomerular Filtration Rate 71 ML/MIN (>89) Creatine Kinase MB LESS THAN 0.5 NG/ML Troponin I LESS THAN 0.02 NG/ML Urine Turbidity HAZY (CLEAR) Urine Protein 30 mg/dL (NEG-TRACE) Urine Occult Blood MOD (NEG) Urine Nitrite POS (NEG) Urine Leukocyte Esterase LARGE (NEG) Urine RBC 74 /hpf (0-3) Urine WBC 128 /hpf (0-5) Urine Mucus FEW /lpf (OCC) White Blood Count 11.6 TH/MM3 (4.0-11.0) Hematocrit 32.3 % (35.0-46.0) Albumin 2.8 GM/DL (3.4-5.0) Potassium Level 3.3 MEQ/L (3.5-5.1) Test 01/01/18 04:10 Red Blood Count 3.91 MIL/MM3 (4.00-5.30) Hemoglobin 10.1 GM/DL (11.6-15.3) Hematocrit 31.3 % (35.0-46.0) Mean Corpuscular Hemoglobin 25.9 PG (27.0-34.0) Neutrophils (%) (Auto) 77.1 % (16.0-70.0) Random Glucose 120 MG/DL (74-106) Albumin 2.8 GM/DL (3.4-5.0) Potassium Level 3.4 MEQ/L (3.5-5.1) Imaging Last Impressions Chest X-Ray 12/30/17 7469 Signed Impressions: CONCLUSION: 1. Cardiomegaly. 2. No focal infiltrate or pulmonary vascular congestion. PE at Discharge GENERAL: NAD SKIN: Warm and dry. HEAD: Normocephalic. EYES: No scleral icterus. No injection or drainage. NECK: Supple, trachea midline. No JVD or lymphadenopathy. CARDIOVASCULAR: Regular rate and rhythm without murmurs, gallops, or rubs. RESPIRATORY: Breath sounds equal bilaterally. No accessory muscle use. GASTROINTESTINAL: Abdomen soft, non-tender, nondistended. MUSCULOSKELETAL: No cyanosis, or edema. BACK: Nontender without obvious deformity. + CVA tenderness. Hospital Course Patient admitted secondary to sepsis due to pyelonephritis for which she was started on IV antibiotics. IV fluid and pain medication were provided accordingly. Oral hypoglycemic agents were held and patient was started on sliding scale insulin with monitoring of blood glucose. DVT and GI prophylaxis were provided. Prior to discharge, patient urine culture was positive for E. coli and pansensitive, therefore she will be discharged home on Cipro 2 weeks. Pt Condition on Discharge: Good Discharge Disposition: Discharge Home Discharge Time: <= 30 minutes Discharge Instructions DIET: Follow Instructions for: Diabetic Diet Activities you can perform: Regular-No Restrictions Follow up Referrals: PCP Follow-up - 1 Week New Medications: Ciprofloxacin (Cipro) 500 Mg Tab 500 MG PO BID for Infection, #28 TAB 0 Refills Lactobacillus Acidophilus (Lactinex) 1 Chew 1 TAB CHEW BID for Nutritional Supplement, #20 TAB 0 Refills Continued Medications: Cyclobenzaprine (Flexeril) 10 Mg Tab 10 MG PO TID for Muscle Spasm, #90 TAB 0 Refills Glipizide (Glipizide) 10 Mg Tab 10 MG PO BIDAC for Blood Sugar Management, #60 TAB 0 Refills Take 30 minutes before a meal Metformin (Metformin) 1,000 Mg Tab 1000 MG PO BIDPC for Blood Sugar Management, #60 TAB 0 Refills Metoclopramide (Reglan) 10 Mg Tab 10 MG PO DAILY, TAB 0 Refills Sitagliptin (Januvia) 100 Mg Tab 100 MG PO DAILY for Blood Sugar Management, #30 TAB 0 Refills Cruzito Billings MD Jan 01, 2018 11:07
[2018-01-01 11:53] VITALS: BP 129/71; PULSE 98; RESP 18; TEMP 98.3; O2SAT 96
== END 2018-01-01 14:01 | disposition home or self-care (01) | DRG 872 ==
LOC: NEPC 18:43 → NEDH 22:41 → NEDA 22:41 → UNDOADMIN 22:41 → NEPFCDU 23:15 → NEDH 23:15 → N04A 12-31 20:57 → NEPFCDU 12-31 20:57
PROVIDERS: ADMIT Hospitalist; ATTEND Hospitalist
DX: A41.51 Sepsis due to Escherichia coli [E. coli] (principal); I11.9 Hypertensive heart disease without heart failure; Z68.42 Body mass index [BMI] 45.0-49.9, adult; N12 Tubulo-interstitial nephritis, not specified as acute or chronic; E66.01 Morbid (severe) obesity due to excess calories; E11.9 Type 2 diabetes mellitus without complications; E86.0 Dehydration; M79.7 Fibromyalgia; Z88.1 Allergy status to other antibiotic agents; Z79.84 Long term (current) use of oral hypoglycemic drugs
CPT/HCPCS: 71045; 80053; 81001; 82550; 82552; 82948; 83605; 83690; 83735; 84100; 84484; 84702; 85025; 85610; 85730; 87040; 87077; 87086; 87186; 96361; 96365; 96366; 96367; 96375; J1200; J1815; J1956; J2765; J3370; J7030; J7050